=== PATIENT | male | born 1940 | race Two or more races ===

== ENCOUNTER 2019-10-12 09:01 | Outpatient (CLI) | payer OTHER | END 2019-10-12 09:14 | disposition home or self-care (01) | LOC: RAD 09:01 | DX: R80.8 Other proteinuria (principal); I10 Essential (primary) hypertension; R31.29 Other microscopic hematuria; R16.0 Hepatomegaly, not elsewhere classified; K76.0 Fatty (change of) liver, not elsewhere classified; Z01.89 Encounter for other specified special examinations ==

== ENCOUNTER 2024-02-27 09:52 | Outpatient (CLI) | payer OTHER | END 2024-02-27 10:01 | disposition home or self-care (01) | LOC: TOM 09:52 | PROVIDERS: ATTEND Internal Medicine Gastroenterology | DX: Z12.11 Encounter for screening for malignant neoplasm of colon (principal) ==